=== PATIENT | female | born 1960 | race Asian ===

== ENCOUNTER 2016-09-12 21:05 | Emergency (ER) | payer OTHER ==
[2016-09-12 21:15] VITALS: BP 136/73
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
== END 2016-09-12 22:05 | disposition home or self-care (01) ==
LOC: UCEAST 21:05
DX: S67.192A Crushing injury of right middle finger, initial encounter (principal); W23.1XXA Caught, crushed, jammed, or pinched between stationary objects, initial encounter; Y93.89 Activity, other specified; Y92.9 Unspecified place or not applicable; Y99.9 Unspecified external cause status
CPT/HCPCS: 73140; 99202; G0463